=== PATIENT | male | born 1950 | race Hispanic/Latino ===

== ENCOUNTER 2023-03-16 04:58 | Observation (INO) | payer MEDICARE ==
[2023-03-11 12:05] LABS: BASOPHILS # (AUTO) 0.03 K/uL (0.00-0.20); BASOPHILS % (AUTO) 0.7 % (0.0-5.0); EOSINOPHILS # (AUTO) 0.19 K/uL (0.00-0.70); EOSINOPHILS % (AUTO) 4.4 % (0.0-8.0); HEMATOCRIT 38.9 % (42-54); IMMATURE GRANULOCYTE ABSOLUTE 0.01 K/uL (0-1); LYMPHOCYTES # (AUTO) 1.1 K/uL (1.0-4.8); LYMPHOCYTES % (AUTO) 25.6 % (21.0-51.0); MEAN CORPUSCULAR HEMOGLOBIN 32.9 pg (27.0-33.0); MEAN CORPUSCULAR HGB CONC 33.9 g/dL (32.0-36.0); MONOCYTES # (AUTO) 0.6 K/uL (0.1-1.0); MONOCYTES % (AUTO) 13.8 % (3.0-13.0); NEUTROPHILS # (AUTO) 2.4 K/uL (1.8-7.7); NEUTROPHILS % (AUTO) 55.3 % (40.0-77.0); PLATELET COUNT (AUTO) 196 K/uL (130-400); RED BLOOD CELL COUNT(AUTO) 4.01 MIL/uL (4.50-6.20); RED CELL DISTRIBUTION WIDTH 12.9 % (11.0-15.5); WHITE BLOOD COUNT (AUTO) 4.3 K/uL (4.8-10.8)
[2023-03-11 12:22] LABS: CREATININE 1.4 mg/dL (0.5-1.5); POTASSIUM 4.2 mmol/L (3.5-5.1)
[2023-03-11 12:25] VITALS: BP 159/80; PULSE 59; RESP 18
[~2023-03-16] VITALS: Ht 177.8 cm; Wt 98.4 kg
[2023-03-16] VITALS (28 sets, daily range): BP systolic 118–154; BP diastolic 57–81; PULSE 61–79; RESP 11–20; O2SAT 96
[~2023-03-16 04:58] MED LIST: AMLO2.5T4 PO; ATEN50TA PO; ATOR10TA69 PO; AZEL137S11 NS; BUPR100T13 PO; FERS325 PO; FLUT15.845 NS; FORTIFY PO; LEVO5TAB13 PO; LOSA50TA64 PO; PANT40TA54 PO; PREG150C47 PO; TADA20TA43 PO; [UNRECOGNIZED DRUG - OTHER] PO
[2023-03-16] MEDS ORDERED: LACTATED RINGERS 1000ML 1,000 ML IV ONE (05:21)
[2023-03-16] MEDS ORDERED: CEFAZOLIN SODIUM 2 GM VIAL ONE ×2 (05:22→17:59)
[2023-03-16] MEDS ORDERED: 0.9%NACL 48.45 ML, ROPIVACAINE 0.5% 49.25ML, EPINEPH 0.5MG KETOROLAC 30MG,CLONIDINE 80MCG IV PRN ×5 (08:00)
[2023-03-16] MEDS ORDERED: TRANEXAMIC ACID 1000MG/10ML ONE (08:55)
[2023-03-16] MEDS ORDERED: CEFAZOLIN SODIUM 1 GM VIAL ONE (08:56)
[2023-03-16] MEDS ORDERED: GENTAMICIN SULFATE 80 MG/2 ML VIAL ONE (08:57)
[2023-03-16] MEDS ORDERED: ACETAMINOPHEN 1,000 MG/100 ML VIAL IV ONE (09:31)
[2023-03-16] MEDS ORDERED: LIDOCAINE PF 100MG/5ML (2%) SYRINGE 5ML ONE (09:32)
[2023-03-16] MEDS ORDERED: PROPOFOL 10 MG/ML 20ML VIAL IV ONE (09:33)
[2023-03-16] MEDS ORDERED: FENTANYL CITRATE PF 50 MCG/1 ML 2ML VIAL ONE (09:33)
[2023-03-16] MEDS ORDERED: ROCURONIUM BROMIDE 10MG/1ML 5ML VL ONE (09:38)
[2023-03-16] MEDS ORDERED: DEXAMETHASONE SOD PHOSPHATE 10MG/ML 1ML VIAL ONE (09:53)
[2023-03-16] MEDS ORDERED: ONDANSETRON 4MG INJ ONE ×2 (09:53→12:36)
[2023-03-16] MEDS ORDERED: NEOSTIGMINE METHYLSULFATE 1MG/ML IV ONE (11:30)
[2023-03-16] MEDS ORDERED: GLYCOPYRROLATE 0.2 MG/ML 5 ML VIAL ONE (11:30)
[2023-03-16] MEDS ORDERED: MEPERIDINE-PF 25 MG/ML SYG ONE ×2 (12:36→12:45)
[2023-03-16] MEDS ORDERED: HYDROCODONE/ACETAMINOPHEN 5/325 MG TAB ONE (15:37)
[2023-03-16] MEDS ORDERED: DIPHENOXYLATE HCL/ATROPINE 2.5/0.025 MG TAB PO PRN (18:30)
[2023-03-16] MEDS ORDERED: MAG/ALUM/SIMETH 30 ML UDCUP PO PRN (18:30)
[2023-03-16] MEDS ORDERED: ACETAMINOPHEN 325 MG TAB PO PRN ×2 (18:30)
[2023-03-16] MEDS ORDERED: HYDROMORPHONE PCA 10 MG/50 ML 50 ML IV PRN (18:30)
[2023-03-16] MEDS ORDERED: WARFARIN SODIUM 7.5 MG TAB PO SCH (18:30)
[2023-03-16] MEDS ORDERED: DiphenhydrAMINE HCL 50 MG/ML VIAL IM PRN (18:30)
[2023-03-16] MEDS ORDERED: DIPHENHYDRAMINE HCL 25 MG CAPSULE PO SCH (18:30)
[2023-03-16] MEDS ORDERED: ONDANSETRON 4MG INJ IVP PRN (18:30)
[2023-03-16] MEDS ORDERED: DIPHENHYDRAMINE HCL 25 MG CAPSULE PO PRN (18:30)
[2023-03-16] MEDS ORDERED: LACTULOSE 20 GM/30 ML UDCUP PO PRN (18:30)
[2023-03-16] MEDS ORDERED: TRAMADOL HCL 50 MG TABLET PO PRN (18:30)
[2023-03-16] MEDS ORDERED: BENZOCAINE/MENTH/CETYLPYRD CL 1 EACH LOZENGE MM PRN (18:30)
[2023-03-16] MEDS ORDERED: ACETAMINOPHEN 325 MG TAB PO SCH (18:30)
[2023-03-16] MEDS: 0.9%NACL 1000ML 1,000 ML IV SCH (19:02)
[2023-03-16] MEDS: CEFAZOLIN SODIUM 2 GM VIAL IVPB SCH (19:04)
[2023-03-17] MEDS: CEFAZOLIN SODIUM 2 GM VIAL IVPB SCH (02:54)
[2023-03-17 03:35] VITALS: BP 114/64; PULSE 64; RESP 18
[2023-03-17] MEDS: 0.9%NACL 1000ML 1,000 ML IV SCH ×2 (04:30→14:09)
[2023-03-17 05:21] LABS: HEMATOCRIT 31.3 % (42-54); MEAN CORPUSCULAR HEMOGLOBIN 32.6 pg (27.0-33.0); MEAN CORPUSCULAR HGB CONC 34.5 g/dL (32.0-36.0); MEAN CORPUSCULAR VOLUME 94.6 fL (79-99); RED BLOOD CELL COUNT(AUTO) 3.31 MIL/uL (4.50-6.20); RED CELL DISTRIBUTION WIDTH 12.9 % (11.0-15.5); WHITE BLOOD COUNT (AUTO) 8.9 K/uL (4.8-10.8)
[2023-03-17 05:29] LABS: % IRON SATURATION 13.7 % (30-44)
[2023-03-17 05:38] LABS: INR 1.12 (0.85-1.15); PROTHROMBIN TIME 12.9 SEC (9.6-11.6)
[2023-03-17 05:56] LABS: CREATININE 1.3 mg/dL (0.5-1.5); POTASSIUM 4.3 mmol/L (3.5-5.1)
[2023-03-17 07:30] VITALS: BP 112/48; PULSE 85; RESP 19
[2023-03-17 08:00] VITALS: O2SAT 97
[2023-03-17] MEDS ORDERED: ATENOLOL 50 MG TABLET PO SCH (09:00)
[2023-03-17] MEDS ORDERED: (Levocetirizine Dihydrochloride 5 MG) PO SCH (09:00)
[2023-03-17] MEDS ORDERED: LOSARTAN 50 MG TABLET PO SCH (09:00)
[2023-03-17] MEDS ORDERED: ATORVASTATIN 10 MG TABLET PO SCH (09:00)
[2023-03-17] MEDS ORDERED: BUPROPION HCL 300 MG PO SCH (09:00)
[2023-03-17] MEDS ORDERED: PREGABALIN 75 MG CAPSULE PO SCH (09:00)
[2023-03-17] MEDS ORDERED: AMLODIPINE 2.5 MG TAB PO SCH (09:00)
[2023-03-17] MEDS ORDERED: TADALAFIL 20 MG PO SCH (09:00)
[2023-03-17] MEDS ORDERED: PANTOPRAZOLE 40 MG TAB DR PO SCH (09:00)
[2023-03-17 11:49] VITALS: BP 112/40; PULSE 69; RESP 19
[2023-03-17] MEDS ORDERED: HYDROCODONE/ACETAMINOPHEN 5/325 MG TAB PO PRN (12:00)
[2023-03-17] MEDS: HYDROCODONE/ACETAMINOPHEN 5/325 MG TAB PO PRN ×2 (12:05→16:30)
[2023-03-17] MEDS ORDERED: POTASSIUM CHLORIDE 10% ELIXIR 20 MEQ/15 ML UDCUP PO PRN (12:30)
[2023-03-17] MEDS ORDERED: MAGNESIUM 2GM PREMIX 50ML 50 ML IV PRN (12:30)
[2023-03-17] MEDS ORDERED: POTASSIUM CHLORIDE 20MEQ/100ML 100 ML IV PRN (12:30)
[2023-03-17] MEDS ORDERED: KCL 20 MEQ ERTAB PO PRN (12:30)
[2023-03-17] MEDS ORDERED: AZELASTINE HCL 137 MCG NASAL SCH (21:00)
== END 2023-03-17 17:20 ==
LOC: DAH 04:58 → DAHIP 04:59 → 4CH 18:20
PROVIDERS: ADMIT Orthopaedic Surgery; ATTEND Orthopaedic Surgery
DX: M17.12 Unilateral primary osteoarthritis, left knee (principal); I12.9 Hypertensive chronic kidney disease with stage 1 through stage 4 chronic kidney disease, or unspecified chronic kidney disease; N18.30 Chronic kidney disease, stage 3 unspecified; E78.5 Hyperlipidemia, unspecified; K21.9 Gastro-esophageal reflux disease without esophagitis; F32.9 Major depressive disorder, single episode, unspecified; N40.0 Benign prostatic hyperplasia without lower urinary tract symptoms; J44.9 Chronic obstructive pulmonary disease, unspecified; E66.9 Obesity, unspecified; E78.00 Pure hypercholesterolemia, unspecified; N52.9 Male erectile dysfunction, unspecified; G62.9 Polyneuropathy, unspecified; K75.81 Nonalcoholic steatohepatitis (NASH); Z68.31 Body mass index [BMI] 31.0-31.9, adult; Z79.01 Long term (current) use of anticoagulants; Z96.653 Presence of artificial knee joint, bilateral; Z79.899 Other long term (current) drug therapy
CPT/HCPCS: 80048 ×2; 85025; 36415 ×2; 93005; 87641; 96365; 27447; 97161; 97012; 97116 ×3; 97530 ×4; 96366; 83036; 83540; 83550; 80061; 82728; 85027; 85610; A6260; G0378 ×20; A4510; A4663; J7120 ×2; A4215 ×2; A4649 ×4; J3010; J0690 ×5; J3490 ×3; J1170; J1100; J0171; J2001; J1580; J2704; J2405 ×2; J1885; J2710; J2175 ×2; J2795; J0735; A6223; A4930; C1763 ×2; C1776; A4223; A4213; A4222; A4221; A6450; J7030